=== PATIENT | male | born 1960 | race Caucasian/White ===

== ENCOUNTER → 2020-12-14 | Emergency (ER) | payer MEDICAID ==
[~2020-12-14] VITALS: Ht 165.1 cm; Wt 68.2 kg
[~2020-12-14] MED LIST: cephalexin 500mg capsule PO ONE
[2020-12-14 20:39] VITALS: BP 156/96
--- NOTE | 2020-12-14 20:43 | NUR ---
PULLED IT OUT
== END | disposition home or self-care (01) ==
LOC: ER 20:24
DX: S60.552A Superficial foreign body of left hand, initial encounter (principal); Z88.5 Allergy status to narcotic agent; W45.8XXA Other foreign body or object entering through skin, initial encounter; Y93.89 Activity, other specified; Y92.89 Other specified places as the place of occurrence of the external cause; Y99.8 Other external cause status
CPT/HCPCS: 99284

== ENCOUNTER 2021-10-02 17:29 | Emergency (ER) | payer MEDICAID ==
[~2021-10-02] VITALS: Ht 165.1 cm; Wt 68.2 kg
[2021-10-02 18:00] VITALS: BP 144/75
[2021-10-02] MEDS ORDERED: CEPH-585 PO (18:36)
[2021-10-02] MEDS ORDERED: cephalexin 250mg capsule PO ONE (18:40)
== END 2021-10-02 18:50 | disposition home or self-care (01) ==
LOC: ER 17:30
DX: M79.5 Residual foreign body in soft tissue (principal); Z88.5 Allergy status to narcotic agent; Z79.2 Long term (current) use of antibiotics
CPT/HCPCS: 99284

== ENCOUNTER 2021-10-31 12:48 | Emergency (ER) | payer MEDICAID ==
[~2021-10-31] VITALS: Ht 165.1 cm; Wt 68.0 kg
[~2021-10-31 12:48] MED LIST changes: +CEPH-585 PO; -cephalexin 500mg capsule PO ONE
[2021-10-31 13:33] VITALS: BP 133/83
[2021-10-31] MEDS ORDERED: LIDOcaine 1% W/epiNEPHrine 1:100,000 20ml vial SQ ONE (14:25)
== END 2021-10-31 15:15 | disposition home or self-care (01) ==
LOC: ER 12:49
DX: S50.852A Superficial foreign body of left forearm, initial encounter (principal); F17.200 Nicotine dependence, unspecified, uncomplicated; Z88.5 Allergy status to narcotic agent; X58.XXXA Exposure to other specified factors, initial encounter; Y93.89 Activity, other specified; Y92.89 Other specified places as the place of occurrence of the external cause; Y99.8 Other external cause status
CPT/HCPCS: 10120; 99285; A6449

== ENCOUNTER 2023-06-19 23:23 | Emergency (ER) | payer MEDICAID ==
[~2023-06-19] VITALS: Ht 165.1 cm; Wt 70.5 kg
[2023-06-19 23:31] VITALS: BP 126/66; PULSE 83; RESP 20; TEMP 98.5; O2SAT 95
== END 2023-06-20 05:36 | disposition left against medical advice (07) ==
LOC: ER 23:24
DX: R04.2 Hemoptysis (principal); Z53.21 Procedure and treatment not carried out due to patient leaving prior to being seen by health care provider
CPT/HCPCS: 99281